=== PATIENT | male | born 1985 | race Caucasian/White ===

== ENCOUNTER 2017-02-23 14:56 | Emergency (ER) | payer OTHER ==
[2017-02-23 15:21] VITALS: BP 136/70; PULSE 75; RESP 18; TEMP 98.4
[2017-02-23] MEDS ORDERED: predniSONE 20 MG TAB PO STA (15:51)
[2017-02-23] MEDS ORDERED: NAPROXEN 250 MG TAB PO STA (15:51)
--- NOTE | 2017-02-23 15:52 | ED ---
General Adult HPI - General Chief complaint: Extremity Problem,Nontraumatic Stated complaint: hand pain Time Seen by Provider: 02/23/17 15:29 Source: patient, RN notes reviewed, old records reviewed Mode of arrival: ambulatory Limitations: no limitations - History of Present Illness Initial comments: This is a 31-year-old male here with bilateral hand swelling. Patient has had this issue for years. He thinks is related to carpal tunnel, he states it does improve when he wears braces at night until is not helping at this point. He takes no medications for pain or medications or swelling of anti- inflammatories. Patient is a cook using both hands. States pain is in both hands mildly worse in his right hand. Patient has no prior evaluation for this pain - Related Data Home Medications Medication Instructions Recorded Confirmed Cholecalciferol [Vitamin D3] 1,000 unit PO DAILY 02/23/17 02/23/17 Maegan Otc Supplement 1 cap PO DAILY 02/23/17 02/23/17 Ibuprofen [Motrin] 200 - 400 mg PO Q6HR PRN 02/23/17 02/23/17 Menthol [Bengay] 1 applic TOPICAL DAILY PRN 02/23/17 02/23/17 Multivitamins, Thera [Multivitamin 1 tab PO DAILY 02/23/17 02/23/17 (formulary)] Previous Rx's Medication Instructions Recorded Acetaminophen with Codeine 1 tab PO Q4H PRN #30 tab 02/23/17 [Tylenol w/codeine #3] Naproxen [Naprosyn] 500 mg PO Q12HR #60 tab 02/23/17 predniSONE 50 mg PO DAILY #5 tab 02/23/17 Allergies Allergy/AdvReac Type Severity Reaction Status Date / Time No Known Allergies Allergy Verified 02/23/17 15:42 Review of Systems ROS Statement: Those systems with pertinent positive or pertinent negative responses have been documented in the HPI. ROS Other: All systems not noted in ROS Statement are negative. Past Medical History Past Medical History: No Reported History History of Any Multi-Drug Resistant Organisms: None Reported Past Surgical History: No Surgical Hx Reported Past Psychological History: No Psychological Hx Reported Smoking Status: Current every day smoker Past Alcohol Use History: None Reported Past Drug Use History: None Reported General Exam - General Exam Comments Initial Comments: Negative Tinel's negative Phalen's Limitations: no limitations General appearance: alert, in no apparent distress Head exam: Present: atraumatic, normocephalic, normal inspection Eye exam: Present: normal appearance, PERRL, EOMI. Absent: scleral icterus, conjunctival injection, periorbital swelling ENT exam: Present: normal exam, mucous membranes moist Neck exam: Present: normal inspection. Absent: tenderness, meningismus, lymphadenopathy Respiratory exam: Present: normal lung sounds bilaterally. Absent: respiratory distress, wheezes, rales, rhonchi, stridor Cardiovascular Exam: Present: regular rate, normal rhythm, normal heart sounds. Absent: systolic murmur, diastolic murmur, rubs, gallop, clicks GI/Abdominal exam: Present: soft, normal bowel sounds. Absent: distended, tenderness, guarding, rebound, rigid Extremities exam: Present: normal inspection, full ROM, normal capillary refill. Absent: tenderness, pedal edema, joint swelling, calf tenderness Back exam: Present: normal inspection Neurological exam: Present: alert, oriented X3, CN II-XII intact Psychiatric exam: Present: normal affect, normal mood Skin exam: Present: warm, dry, intact, normal color. Absent: rash Course Vital Signs 02/23/17 02/23/17 15:19 15:55 Temperature 98.4 F 98.4 F Pulse Rate 75 75 Respiratory 18 18 Rate Blood Pressure 136/70 136/70 O2 Sat by Pulse 97 97 Oximetry Medical Decision Making - Medical Decision Making 31 male consult for likely carpal tunnel disease, will follow up with orthopedics, given steroid and anti-inflammatories. Patient can be discharged home Disposition Clinical Impression: Bilateral carpal tunnel syndrome Disposition: HOME SELF-CARE Condition: Good Instructions: Paresthesia (ED), Arthritis (ED) Prescriptions: Acetaminophen with Codeine [Tylenol w/codeine #3] 1 tab PO Q4H PRN #30 tab PRN Reason: Pain Naproxen [Naprosyn] 500 mg PO Q12HR #60 tab predniSONE 50 mg PO DAILY #5 tab Referrals: None,Stated [Primary Care Provider] - 1-2 days
== END 2017-02-23 16:00 | disposition home or self-care (01) ==
LOC: EC 14:56
DX: G56.03 Carpal tunnel syndrome, bilateral upper limbs (principal); F17.200 Nicotine dependence, unspecified, uncomplicated; Z79.899 Other long term (current) drug therapy
CPT/HCPCS: 99283; J7512